=== PATIENT | male | born 1950 | race Caucasian/White ===

== ENCOUNTER → 2018-01-11 11:43 | Outpatient (CLI) | payer MEDICARE, SELFPAY ==
--- NOTE | 2018-01-11 16:21 | STRESSREP_ITS ---
Stress Test Report Exercise stress test. 67-year-old man with a history of atherosclerotic cardiovascular disease. Stress protocol: Resting EKG demonstrates normal sinus rhythm with rate of 78 bpm. Resting blood pressure is 140/62 mmHg. The patient exercised according to the Yonas protocol total duration of 10 minutes and 16 seconds. The maximum heart rate attained was 144 bpm which was 92% of maximum predicted heart rate the maximum workload attained was 12.1 metabolic equivalents. Patient maintained sinus rhythm throughout the recording with occasional premature ventricular complexes only. The resting blood pressure is 140/62 with a peak blood pressure of 222/ 74. Rate pressure product was 28,600. No clinical angina was noted the test was terminated due to leg fatigue. Conclusion: Exercise stress test with no EKG criteria for ischemia at a high workload Excellent functional capacity.
== END ==
PROVIDERS: Family Provider Family Medicine; PCP Family Medicine; Visit Provider Internal Medicine Cardiovascular Disease
DX: I25.10 Atherosclerotic heart disease of native coronary artery without angina pectoris (principal); I10 Essential (primary) hypertension
CPT/HCPCS: 93017

== ENCOUNTER → 2023-06-19 | Outpatient (CLI) | payer MEDICARE, SELFPAY ==
[2023-06-19 09:06] VITALS: BP 124/63; PULSE 69; RESP 18; O2SAT 93; BMI 29.9
[2023-06-19 10:10] VITALS: BP 134/73; PULSE 71; RESP 16; O2SAT 97
== END | disposition home or self-care (01) ==
PROVIDERS: PCP Family Medicine; Referring Provider Internal Medicine Hematology & Oncology; Visit Provider Internal Medicine Hematology & Oncology
DX: C34.90 Malignant neoplasm of unspecified part of unspecified bronchus or lung (principal)
CPT/HCPCS: 36569